=== PATIENT | female | born 1975 | race Caucasian/White ===

== ENCOUNTER 2018-03-23 17:33 | Emergency (ER) | payer MEDICAID ==
[~2018-03-23] VITALS: Ht 165.1 cm; Wt 50.3 kg
--- NOTE | 2018-03-23 18:33 | Emergency Room Report ---
History of Present Illness General Chief Complaint: Dizziness Source: Patient Present Illness HPI 42-year-old female patient presents to ER with multiple complaints. Patient reports she may have recently been diagnosed with lupus, but is unsure of diagnosis. Reports symptoms have been on and off since October. Reports a worsening the past few days. Patient complaining of generalized weakness and dizziness. R Reports symptoms "sometimes" occur with position change. Denies history of fainting or syncope. Denies loss of consciousness or vomiting. Denies history of cardiac disease or OK. reports was seen by cardiology for workup, no underlying cardiac pathology discovered at that time, no history of arrhythmia. Denies history of asthma. Reports denies difficulty breathing at this time. Also complaining of "haziness" over her field of vision. denies curtain coming down over her eyes. Patient denies pain with eye movement, denies swelling around eyes, denies eye crusting. Reports previous scan of her head negative for disease. Denies fever. Patient reports symptoms seem to worsen when she starts to think about her symptoms. patient reports she has had panic attacks in the past, has never been diagnosed with an anxiety disorder or panic disorder. Denies dysuria, hematuria. Denies diarrhea and vomiting. Denies abdominal pain. Allergies: Coded Allergies: CARBOXYMETHYLCELLULOSE SODIUM (Verified Allergy, Unknown, 03/23/18) Patient History Past Medical History: see triage record Last Menstrual Period: 03/21/2018 Now: No Reviewed Nursing Documentation: PMH: Agreed; PSxH: Agreed Nursing Documentation-PM Past Medical History: No History, Except For Hx Gastrointestinal Problems: Yes - parasites Review of Systems All Other Systems: negative except mentioned in HPI Physical Exam Vital Signs Date Time Temp Pulse Resp B/P (MAP) Pulse Ox O2 Delivery O2 Flow Rate FiO2 03/23/18 17:49 97.8 90 18 100/68 95 Room Air 97.9 Sp02 EP Interpretation: reviewed, normal General Appearance: well appearing, no apparent distress, alert, GCS 15, non- toxic Head: normocephalic, atraumatic Eyes: bilateral eye normal inspection, bilateral eye PERRL, bilateral eye EOMI ENT: hearing grossly normal, normal pharynx, no angioedema, normal voice, TMs + canals normal, uvula midline, moist mucus membranes Neck: full range of motion Respiratory: lungs clear, normal breath sounds, no rhonchi, no respiratory distress, no accessory muscle use, no wheezing, speaking full sentences Cardiovascular #1: regular rate, rhythm, no edema Gastrointestinal: non tender, soft, no mass, non-distended, no guarding, no rebound Genitourinary: no CVA tenderness Musculoskeletal: back normal, digits/nails normal, gait/station normal, normal range of motion, non-tender Neurologic: alert, oriented x3, responsive, wire temperer III-XII nml as tested, motor strength/tone normal, sensory intact, cerebellar normal, normal gait, speech normal Psychiatric: mood/affect normal Skin: no rash Lymphatic: no adenopathy Medical Decision Making PA Attestation Dr. Hanna is my supervising Physician whom patient management has been discussed with. Diagnostic Impression: Primary Impression: Dizziness Additional Impression: Vision changes ER Course Pt. presents to the ED c/o dizziness and vision changes. Ddx considered but are not limited to Vertigo, BPPV, anemia, labyrinthitis, drug use, migraine, retinal detachment, bacterial conjunctivitis, somatization disorder. Low suspicion for cardiac pathology, patient had recent workup, negative for acute disease, does not require cardiac workup at this time. Vital signs: are WNL, pt. is afebrile Ordered labs, fluids, and medication. ER COURSE: PE benign, lungs clear to auscultation, eyes clear, no conjunctival injection or crusting, no pain with eye movement. VA 20/20 OD, OU,OS Ultrasound of eyes performed in ER, negative for retinal detachment. Does not require acute treatment in ER, followup with franchise specialist. CBC and CMP unremarkable UA unremarkable, occult blood likely related to patient being on menstrual period. Urine negative. Urine drug screen CXR negative for acute disease Orthostatic vitals show no orthostatic hypotension. Patient reports she is feeling better following fluids, no longer feeling dizzy. Low suspicion for central vertigo, does not require imaging at this time. Patient reports has had scan of head perviously, was negative at that time. Possible peripheral vertigo, will provide tx. Followup with ENT and neurology as needed. Followup with ophthalmology for eye complaints. Followup at scheduled appointment with nurse navigator to discuss lupus diagnosis. Followup with PCP to discuss referral to specialist regarding complaints. Discuss with patient should followup with mental health professional, symptoms may be related to anxiety. Discuss treatment at that time. Patient has had multiple workups for multiple complaints. Informed patient to stay hydrated. Patient reports she feels OK for discharge following discussion of labs , patient AOx4, able to ambulate independently, talking without difficulty. DISCHARGE: Rx provided for Meclizine for dizziness with position change. Take Tylenol for pain symptoms. At this time pt is stable for d/c to home. Patient is resting comfortably, in no acute distress, nontoxic appearing, talking without difficulty. Patient to take medications as instructed Will provide with patient care instructions and any necessary prescriptions. Care plan and follow-up instructions provided. Patient instructed to follow-up with primary care provider in 3 - 5 days. Patient questions asked and answered. Patient reports understanding and agreement to treatment plan. ER precautions given. Patient instructed to return to ER immediately for any new or worsening of symptoms including but not limited to increasing SOB, persistent fever, chest pain, intractable vomiting. - Please note that this Emergency Department Report was dictated using [employer] technology software, occasionally this can lead to erroneous entry secondary to interpretation by the dictation equipment. Labs Test 03/23/18 19:00 White Blood Count 7.0 K/UL (4.8-10.8) Red Blood Count 4.68 M/UL (4.20-5.40) Hemoglobin 14.2 G/DL (12.0-16.0) Hematocrit 42.7 % (37.0-47.0) Mean Corpuscular Volume 91 FL (80-99) Mean Corpuscular Hemoglobin 30.3 PG (27.0-31.0) Mean Corpuscular Hemoglobin Concent 33.3 G/DL (32.0-36.0) Red Cell Distribution Width 11.5 % (11.6-14.8) Platelet Count 226 K/UL (150-450) Mean Platelet Volume 8.9 FL (6.5-10.1) Neutrophils (%) (Auto) 63.8 % (45.0-75.0) Lymphocytes (%) (Auto) 25.2 % (20.0-45.0) Monocytes (%) (Auto) 8.7 % (1.0-10.0) Eosinophils (%) (Auto) 1.2 % (0.0-3.0) Basophils (%) (Auto) 1.2 % (0.0-2.0) Urine Color Pale yellow Urine Appearance Clear Urine pH 6 (4.5-8.0) Urine Specific [place] 1.005 (1.005-1.035) Urine Protein Negative (NEGATIVE) Urine Glucose (UA) Negative (NEGATIVE) Urine Ketones Negative (NEGATIVE) Urine Occult Blood 4+ (NEGATIVE) Urine Nitrite Negative (NEGATIVE) Urine Bilirubin Negative (NEGATIVE) Urine Urobilinogen Normal MG/DL (0.0-1.0) Urine Leukocyte Esterase Negative (NEGATIVE) Urine RBC 0-2 /HPF (0 - 2) Urine WBC 0-2 /HPF (0 - 2) Urine Squamous Epithelial Cells Occasional /LPF Urine Bacteria None /HPF (NONE) Urine HCG, Qualitative Negative (NEGATIVE) Sodium Level 141 MMOL/L (136-145) Potassium Level 3.6 MMOL/L (3.5-5.1) Chloride Level 106 MMOL/L (98-107) Carbon Dioxide Level 26 MMOL/L (21-32) Anion Gap 9 mmol/L (5-15) Blood Urea Nitrogen 11 mg/dL (7-18) Creatinine 0.8 MG/DL (0.55-1.30) Estimat Glomerular Filtration Rate > 60 mL/min (>60) Glucose Level 102 MG/DL (74-106) Calcium Level 8.7 MG/DL (8.5-10.1) Total Bilirubin 0.3 MG/DL (0.2-1.0) Aspartate Amino Transf (AST/SGOT) 19 U/L (15-37) Alanine Aminotransferase (ALT/SGPT) 22 U/L (12-78) Alkaline Phosphatase 52 U/L (46-116) Total Creatine Kinase 40 U/L (26-308) Creatine Kinase MB 0.6 NG/ML (0.0-3.6) Creatine Kinase MB Relative Index 1.5 C-Reactive Protein, Quantitative < 0.4 mg/dL (0.00-0.90) Total Protein 7.5 G/DL (6.4-8.2) Albumin 3.9 G/DL (3.4-5.0) Globulin 3.6 g/dL Albumin/Globulin Ratio 1.1 (1.0-2.7) Urine Opiates Screen Negative (NEGATIVE) Urine Barbiturates Screen Negative (NEGATIVE) Phencyclidine (PCP) Screen Negative (NEGATIVE) Urine Amphetamines Screen Negative (NEGATIVE) Urine Benzodiazepines Screen Negative (NEGATIVE) Urine Cocaine Screen Negative (NEGATIVE) Urine Marijuana (THC) Screen Negative (NEGATIVE) Chest X-Ray Diagnostic Results Chest X-Ray Diagnostic Results : Chest X-Ray Ordered: Yes # of Views/Limited/Complete: 1 View Indication: Chest Pain EP Interpretation: Yes PA Xray: Interpretation reviewed, by supervising MD, and agrees with findings. Interpretation: no consolidation, no effusion, no pneumothorax Impression: No acute disease JOHNNA Jorge PA-Romie Last Vital Signs Date Time Temp Pulse Resp B/P (MAP) Pulse Ox O2 Delivery O2 Flow Rate FiO2 03/23/18 17:49 97.8 90 18 100/68 95 Room Air 97.9 Disposition: HOME, SELF-CARE Condition: Stable Scripts Meclizine Hcl* (VERTICALM*) 25 Mg Tablet 25 MG ORAL THREE TIMES A DAY, #30 TAB Prov: Murtaza Jorge 03/23/18 Patient Instructions: Blurred Vision, Dizziness, Systemic Lupus Erythematosus, Adult Additional Instructions: Followup with primary care provider in 3 -5 days. Follow-up with scheduled appointment with rheumatology. Discuss treatment and management of lupus. Follow-up with ophthalmology. Follow up with ENT. Follow-up with mental health. Follow-up with neurology. Followup with urology. Take medications as directed. Patient questions asked and answered. ER precautions given, patient instructed to return to ER immediately for any new or worsening of symptoms we will not limited to chest pain, shortness of breath, intractable vomiting, abdominal pain, vision changes or loss. Murtaza Jorge March 23, 2018 18:33
[2018-03-23 19:34] LABS: BASOPHILS % (AUTO) 1.2 % (0.0-2.0); EOSINOPHILS % (AUTO) 1.2 % (0.0-3.0); HEMATOCRIT 42.7 % (37.0-47.0); HEMOGLOBIN 14.2 G/DL (12.0-16.0); LYMPHOCYTES % (AUTO) 25.2 % (20.0-45.0); MEAN CORPUSCULAR VOLUME 91 FL (80-99); MONOCYTES % (AUTO) 8.7 % (1.0-10.0); NEUTROPHILS % (AUTO) 63.8 % (45.0-75.0); PLATELET COUNT 226 K/UL (150-450); RED BLOOD COUNT 4.68 M/UL (4.20-5.40); RED CELL DISTRIBUTION WIDTH 11.5 % (11.6-14.8)
[2018-03-23 19:36] LABS: APPEARANCE,URINE CLEAR; BILIRUBIN, URINE NEGATIVE (NEGATIVE); COLOR,URINE PALE YELLOW; GLUCOSE, URINE (UA) NEGATIVE (NEGATIVE); KETONES,URINE NEGATIVE (NEGATIVE); LEUKOCYTE ESTERASE ,URINE NEGATIVE (NEGATIVE); NITRITE,URINE NEGATIVE (NEGATIVE); PH,URINE 6 (4.5-8.0); PROTEIN,URINE NEGATIVE (NEGATIVE); UROBILINOGEN,URINE NORMAL MG/DL (0.0-1.0)
[2018-03-23 19:49] VITALS: BP_SYST 134; BP_SYST 143; BP_SYST 144; BP_DIAS 82; BP_DIAS 96; BP_DIAS 98
[2018-03-23 19:54] LABS: ANION GAP 9 mmol/L (5-15); BLOOD UREA NITROGEN 11 mg/dL (7-18); CALCIUM 8.7 MG/DL (8.5-10.1); CARBON DIOXIDE 26 MMOL/L (21-32); CHLORIDE 106 MMOL/L (98-107); CREATININE 0.8 MG/DL (0.55-1.30); POTASSIUM 3.6 MMOL/L (3.5-5.1); SODIUM 141 MMOL/L (136-145)
[2018-03-23 20:16] LABS: ALANINE AMINOTRANSFERASE 22 U/L (12-78); ALBUMIN 3.9 G/DL (3.4-5.0); ALBUMIN/GLOBULIN RATIO 1.1 (1.0-2.7); ALKALINE PHOSPHATASE 52 U/L (46-116); ASPARTATE AMINO TRANSFERASE 19 U/L (15-37); BILIRUBIN,TOTAL 0.3 MG/DL (0.2-1.0); CKMB 0.6 NG/ML (0.0-3.6); CREATINE KINASE 40 U/L (26-308)
[2018-03-23] MEDS ORDERED: Acetaminophen 500mg (ES) tab ORAL ONE (20:30)
[2018-03-23] MEDS ORDERED: VERTICALM25 MG ORAL (21:56)
[2018-03-23 22:24] VITALS: BP 144/96
--- NOTE | 2018-03-24 10:47 | Diagnostic Imaging Report ---
Indication: Dyspnea Comparison: None A single view chest radiograph was obtained. Findings: Cardiomediastinal appearance is within normal limits for age. Pulmonary vascularity is appropriate. The diaphragmatic contour is smooth and costophrenic angles are sharp. No pleural effusions are identified. The bones are unremarkable. Impression: No acute findings
== END 2018-03-23 22:26 | disposition home or self-care (01) ==
LOC: EMR 18:30
DX: R42 Dizziness and giddiness (principal); H53.9 Unspecified visual disturbance; Z88.8 Allergy status to other drugs, medicaments and biological substances
CPT/HCPCS: 36415; 71045; 80053; 80307; 81003; 81025; 82550; 82553; 85025; 86140; 96374; 99284

== ENCOUNTER → 2020-09-03 | Emergency (ER) | payer MEDICAID ==
[~2020-09-03] VITALS: Ht 162.6 cm; Wt 59.0 kg
[~2020-09-03] MED LIST: VERTICALM25 MG ORAL
[2020-09-03 17:03] VITALS: BP 136/90
== END | disposition home or self-care (01) ==
LOC: EMR 17:10
DX: S99.922A Unspecified injury of left foot, initial encounter (principal); W01.0XXA Fall on same level from slipping, tripping and stumbling without subsequent striking against object, initial encounter; Y92.9 Unspecified place or not applicable
CPT/HCPCS: 99282